=== PATIENT | female | born 1990 | race Two or more races ===

== ENCOUNTER 2019-06-24 04:48 | Emergency (ER) | payer SELFPAY ==
[~2019-06-24] VITALS: Ht 162.6 cm; Wt 89.0 kg
[2019-06-24 04:53] VITALS: BP 129/84
[2019-06-24] MEDS ORDERED: IBUPROFEN 200 MG TABLET ONE (05:27)
[2019-06-24] MEDS ORDERED: IBUPROFEN 600 MG TABLET PO ONE (05:30)
[2019-06-24] MEDS ORDERED: IBUPROFEN 600 MG TABLET ONE (05:30)
== END 2019-06-24 05:52 | disposition home or self-care (01) ==
LOC: ED 05:26
DX: K02.9 Dental caries, unspecified (principal); R51 Headache
CPT/HCPCS: 99283